=== PATIENT | male | born 1960 | race Caucasian/White ===

== ENCOUNTER 2016-07-05 17:41 | Emergency (ER) | payer BC ==
[2016-07-05 19:22] VITALS: BP 151/94
[2016-07-05] MEDS ORDERED: Oseltamivir CAP* 75 MG PO ONE (20:20)
--- NOTE | 2016-07-05 20:38 | UC ---
FLU HPI - HPI Summary HPI Summary: 55 M TWO DAYS OF FEVER COUGH CONGESTION AND BODY ACHES. NO FLU SHOT THIS YEAR - History of Current Complaint Chief Complaint: UCRespiratory Stated Complaint: FLU SYMPTOMS Time Seen by Provider: 07/05/16 19:29 Hx Obtained From: Patient Onset/Duration: Sudden Onset, Lasting Days, Still Present Severity Currently: Mild Severity Initially: Mild Associated Signs & Symptoms: Positive: T Max, Myalgia, Cough, Sore Throat Related Hx: Possible Flu/Infectious Exposure - Risk Factors Influenza Risk Factors: Negative - Allergy/Home Medications Allergies/Adverse Reactions: Allergies Allergy/AdvReac Type Severity Reaction Status Date / Time Iodine Allergy Severe Edema Verified 07/05/16 19:23 Home Medications: Home Medications Ibuprofen TAB* [Advil TAB*] 600 mg PO Q6H PRN 07/05/16 [History Confirmed ] Pseudoephedrine TAB* [Sudafed TAB*] PRN 07/05/16 [History] PMH/Surg Hx/FS Hx/Imm Hx Previously Healthy: Yes - Surgical History Surgical History: Yes Surgery Procedure, Year, and Place: Hernia repain 2016 Choleycystectomy - Family History Known Family History: Negative: Respiratory Disease - Social History Occupation: Employed Full-time Lives: With Family Alcohol Use: Occasionally Substance Use Type: None Smoking Status (MU): Never Smoked Tobacco Review of Systems Constitutional: Fever, Chills Skin: Negative Eyes: Negative ENT: Sore Throat Respiratory: Cough Cardiovascular: Negative Gastrointestinal: Negative Genitourinary: Negative Motor: Negative Neurovascular: Negative Musculoskeletal: Myalgia Neurological: Negative Psychological: Negative All Other Systems Reviewed And Are Negative: Yes Physical Exam Triage Information Reviewed: Yes Appearance: Well-Appearing, No Pain Distress, Well-Nourished Vital Signs: Initial Vital Signs Temp 100.4 F 07/05/16 19:15 Pulse 116 07/05/16 19:15 Resp 24 07/05/16 19:15 BP 151/94 07/05/16 19:15 Pulse Ox 96 07/05/16 19:15 Eye Exam: Normal Eyes: Positive: Conjunctiva Clear ENT Exam: Normal ENT: Positive: Normal ENT inspection, Hearing grossly normal, TMs normal Dental Exam: Normal Neck exam: Normal Neck: Positive: Supple, Nontender, No Lymphadenopathy Respiratory Exam: Normal Respiratory: Positive: Chest non-tender, Lungs clear Cardiovascular Exam: Normal Cardiovascular: Positive: RRR, No Murmur, Pulses Normal Abdominal Exam: Normal Abdomen Description: Positive: Nontender, No Organomegaly Musculoskeletal Exam: Normal Musculoskeletal: Positive: Strength Intact, ROM Intact Neurological Exam: Normal Psychological Exam: Normal Skin Exam: Normal Flu Course/Dx - Differential Dx/Diagnosis Differential Diagnosis/HQI/PQRI: Influenza, Upper Respiratory Infection Provider Diagnoses: INFLUENZA Discharge - Discharge Plan Condition: Stable Disposition: HOME Prescriptions: Oseltamivir CAP* [Tamiflu CAP*] 75 mg PO BID #10 cap Patient Education Materials: Influenza (ED) Forms: *Work Release Referrals: [facility] [Outside]
== END 2016-07-05 20:34 | disposition home or self-care (01) ==
LOC: UCEAST 17:41
DX: J11.1 Influenza due to unidentified influenza virus with other respiratory manifestations (principal); Z90.49 Acquired absence of other specified parts of digestive tract
CPT/HCPCS: 87502; 99202; A9270-GY; G0463

== ENCOUNTER 2016-08-02 11:06 | Emergency (ER) | payer BC ==
[2016-08-02 11:20] VITALS: BP 140/97
[2016-08-02] MEDS ORDERED: metroNIDAZOLE TAB* 250 MG PO ONE (11:34)
[2016-08-02] MEDS ORDERED: Ciprofloxacin TAB* 250 MG PO ONE (11:34)
[2016-08-02] MEDS ORDERED: Ciprofloxacin TAB* 500 MG PO ONE (11:35)
--- NOTE | 2016-08-02 11:42 | UC ---
Abdominal Pain Male HPI - HPI Summary HPI Summary: 55 yo male was awaken by 5-6/10 llq abd pain about 2AM has had diverticulitis 3-4 x in the pain never admitted has has CT and colonoscopy no f/c no n/v/d this is typical location of his diverticular pain - History of Current Complaint Chief Complaint: UCGI Stated Complaint: ABDOMINAL PAIN Time Seen by Provider: 08/02/16 11:18 Hx Obtained From: Patient Onset/Duration: Sudden Onset, Lasting Hours Timing: Constant Severity Initially: Severe Severity Currently: Mild Pain Intensity: 4 Pain Scale Used: 0-10 Numeric Location: Discrete At: LLQ Radiates: No Character: Aching Aggravating Factor(s):: Nothing Alleviating Factor(s): Meds Associated Signs And Symptoms: Negative: Diaphoresis, Fever, Cough, Chest Pain, Dizzy, Back Pain, Constipation, Blood in Stool, Urinary Symptoms, Decreased Appetite, Nausea, Vomiting, Diarrhea, Penile Discharge Similar Episode/Dx As:: diveticulitis - Allergies/Home Medications Allergies/Adverse Reactions: Allergies Allergy/AdvReac Type Severity Reaction Status Date / Time Iodine Allergy Severe Edema Verified 08/02/16 11:20 PMH/Surg Hx/FS Hx/Imm Hx Previously Healthy: Yes Endocrine History Of: Denies: Diabetes, Thyroid Disease Cardiovascular History Of: Denies: Cardiac Disorders, Hypertension Respiratory History Of: Denies: COPD, Asthma GI/ History Of: Denies: Ulcer - Surgical History Surgical History: Yes Surgery Procedure, Year, and Place: Hernia repain 2016 Choleycystectomy - Family History Known Family History: Negative: Cardiac Disease, Hypertension, Diabetes, Respiratory Disease - Social History Alcohol Use: Occasionally Substance Use Type: None Smoking Status (MU): Former Smoker Review of Systems Constitutional: Negative Skin: Negative Eyes: Negative ENT: Negative Respiratory: Negative Cardiovascular: Negative Gastrointestinal: Abdominal Pain Genitourinary: Negative Motor: Negative Neurovascular: Negative Musculoskeletal: Negative Neurological: Negative Psychological: Negative All Other Systems Reviewed And Are Negative: Yes Physical Exam Triage Information Reviewed: Yes Appearance: Well-Appearing, No Pain Distress, Well-Nourished Vital Signs: Initial Vital Signs Temp 96.9 F 08/02/16 11:11 Pulse 58 08/02/16 11:11 Resp 20 08/02/16 11:11 BP 140/97 08/02/16 11:11 Pulse Ox 97 08/02/16 11:11 Vital Signs Reviewed: Yes Eyes: Positive: Conjunctiva Clear ENT: Positive: Hearing grossly normal, Pharynx normal. Negative: Nasal congestion, Nasal drainage, Trismus, Muffled/hoarse voice Neck: Positive: Supple, Nontender Respiratory: Positive: Lungs clear, Normal breath sounds, No respiratory distress Cardiovascular: Positive: RRR, No Murmur Abdomen Description: Positive: Soft. Negative: Nontender - LLQtender Bowel Sounds: Positive: Present Abd Pain Male Course/Dx - Differential Dx/Clinical Impression Provider Diagnoses: LLQ abdominal pain. suspect diverticulitis Discharge - Discharge Plan Condition: Stable Disposition: HOME Prescriptions: Ciprofloxacin TAB* [Cipro 750 MG Tab*] 750 mg PO BID #14 tab Metronidazole [Flagyl 500 MG TAB] 500 mg PO QID #28 tab Patient Education Materials: Diverticulitis (ED) Forms: *Work Release Referrals: Micha Light MD [Primary Care Provider] - 2 Days Additional Instructions: to ER for INCREASE PAIN FEVER VOMITING
== END 2016-08-02 12:17 | disposition home or self-care (01) ==
LOC: UCEAST 11:06
DX: R10.32 Left lower quadrant pain (principal); Z87.891 Personal history of nicotine dependence
CPT/HCPCS: 99212; A9270-GY; G0463